=== PATIENT | male | born 1970 | race Caucasian/White ===

== ENCOUNTER 2019-02-09 21:28 | Emergency (ER) | payer SELFPAY ==
[~2019-02-09] VITALS: Ht 167.6 cm; Wt 66.0 kg
[2019-02-09] MEDS ORDERED: KETOROLAC 30MG/ML VIAL IV STA (23:49)
[2019-02-09] MEDS ORDERED: MORPHINE SULFATE 4 MG/ML CPJ (NOT FOR IM USE) IV STA (23:49)
[2019-02-09] MEDS ORDERED: SODIUM CHLORIDE 0.9% 1,000 ML IV ONE (23:49)
[2019-02-09] MEDS ORDERED: ONDANSETRON HCL 4MG/2ML INJ IV STA (23:49)
[2019-02-10 00:25] LABS: CHLORIDE 104 mEq/L (98-107)
[2019-02-10 00:27] LABS: BASOPHILS % 0.2 % (0.0-2.0); EOSINOPHILS % 1.2 % (0.0-5.0); HEMATOCRIT. 39.4 % (42.0-52.0); HEMOGLOBIN. 14.1 g/dL (14.0-18.0); MEAN CORPUSCULAR HEMOGLOBIN 31.3 pg (28.0-32.0); MEAN CORPUSCULAR VOLUME 87.7 fL (80.0-94.0); MEAN PLATELET VOLUME 7.6 fl (7.4-10.4); MONOCYTES % 11.5 % (2.0-8.0); NEUTROPHILS % 62.1 % (40.0-76.0); PLATELET 182 x1000/uL (130-400); RED CELL DISTRIBUTION WIDTH 13.5 % (11.6-14.6)
[2019-02-10] MEDS ORDERED: VALACYCLOVIR HCL 500MG TABLET PO ONE (01:30)
[2019-02-10] MEDS ORDERED: PREDNISONE 20MG TABLET PO ONE (01:30)
[2019-02-10 02:50] VITALS: BP 116/76
== END 2019-02-10 02:54 | disposition home or self-care (01) ==
LOC: ER 21:28
DX: B02.9 Zoster without complications (principal); B20 Human immunodeficiency virus [HIV] disease; Z90.49 Acquired absence of other specified parts of digestive tract
CPT/HCPCS: 36415; 80053; 83690; 85025; 96374; 96375; 99283; J1885; J2270; J2405; J7030; J7512; Z7610

== ENCOUNTER 2023-12-30 21:40 | Emergency (ER) | payer BC, MEDICAID, OTHER ==
[~2023-12-30] VITALS: Ht 167.6 cm; Wt 66.0 kg
[2023-12-30 22:10] VITALS: TEMP 98.3; O2SAT 99
[2023-12-31] MEDS ORDERED: CEPH500C2 PO (06:58)
[2023-12-31] MEDS ORDERED: SULF1TAB48 PO (06:58)
[2023-12-31] MEDS: LIDOCAINE HCL/PF 1% 10 MG/ML 5ML VIAL INFIL ONE (06:59)
[2023-12-31 07:51] VITALS: BP 107/73; PULSE 72; RESP 18
== END 2023-12-31 07:52 | disposition home or self-care (01) ==
LOC: ER 21:40
DX: L02.31 Cutaneous abscess of buttock (principal); F15.90 Other stimulant use, unspecified, uncomplicated; Z90.49 Acquired absence of other specified parts of digestive tract; Z98.890 Other specified postprocedural states
CPT/HCPCS: 99284; 10060; J3490